=== PATIENT | male | born 2005 | race Two or more races ===

== ENCOUNTER 2024-03-21 17:18 | Emergency (ER) | payer MEDICAID, SELFPAY ==
[2024-03-21 17:31] VITALS: BP 136/78; PULSE 64; RESP 20; TEMP 36.9; O2SAT 97
--- NOTE | 2024-03-21 17:42 | XR_ITS ---
Examination: Abdomen sonogram, Limited Date and time of exam: March 21, 2024 1807 hrs. Indications: Epigastric pain beginning 2 days ago Technique: Real-time coulter scale transabdominal sonographic images of the upper abdomen obtained. Findings: Negative for gallstones Normal gallbladder wall 0.3 cm Common bile duct 0.3 cm Pancreatic head 3.3 cm Liver 16.5 cm fatty infiltration focal fatty sparing in the middle of the liver Patent IVC Normal hepatopedal portal venous oh Impression: Negative for cholelithiasis, negative for cholecystitis Normal common bile duct Mild hepatomegaly fatty liver
--- NOTE | 2024-03-21 17:42 | PD.EDRME ---
Rapid Medical Screening Exam RME Arrival date/time: 03/21/24 17:18 18-year-old male presents emergency department complains of upper abdominal pain Chief Complaint: Abdominal Pain Vital signs: Vital Signs Temperature 98.4 F 03/21/24 17:31 Pulse Rate 64 03/21/24 17:31 Respiratory Rate 20 03/21/24 17:31 Blood Pressure 136/78 H 03/21/24 17:31 Pulse Oximetry (%) 97 03/21/24 17:31 Oxygen Delivery Method Room Air 03/21/24 17:31
[2024-03-21 18:08] LABS: Collection Type, Urine Clean Catch; RBC,Urine 0 /hpf (0-3)
[2024-03-21 18:12] LABS: Basophils # (Auto) 0.1 Thou/mm3 (0.0-0.2); Basophils % (Auto) 1 % (0-2.5); Eosinophils # (Auto) 0.3 Thou/mm3 (0.0-0.5); Eosinophils % (Auto) 3 % (0-10); Hematocrit 44.9 % (41.0-53.0); Hemoglobin 15.3 g/dL (13.5-16.0); Immature Granulocytes % (Auto) 0 % (0-0); Immature Granulocytes Auto 0.01 Thou/mm3 (0.00-0.00); Lymphocytes # (Auto) 2.6 Thou/mm3 (1.0-4.8); Lymphocytes % (Auto) 31 % (10-50); Mean Corpuscular HGB Conc 34.1 g/dl (31.0-37.0); Mean Corpuscular Hemoglobin 28.9 pg (25.0-35.0); Mean Corpuscular Volume 85 fL (80-100); Monocytes # (Auto) 0.8 Thou/mm3 (0.0-0.8); Monocytes % (Auto) 10 % (0-12); Neutrophils # (Auto) 4.6 Thou/mm3 (1.8-7.7); Neutrophils % (Auto) 55 % (37-80); Nucleated Red Blood Cell % 0 /100 WBC (0); Platelet Count 247 Thou/mm3 (140-440); White Blood Count 8.3 Thou/mm3 (4.5-11.0)
[2024-03-21 18:29] LABS: Bilirubin,Urine Negative (Negative); Blood,Urine Negative (Negative); Clarity,Urine Clear (Clear/Hazy); Color,Urine Yellow (Lt Yel-Yel); Glucose, Urine Negative (Negative); Ketones,Urine Negative (Negative); Leukocyte Esterase,Urine Positive (Negative); Nitrite,Urine Negative (Negative); Protein,Urine Trace (Neg - Trace); Specific Gravity,Urine 1.031 (1.001-1.035); Squamous Epithelial Cell,Urine < 1 /hpf (0-5); WBC,Urine 35 /hpf (0-5)
[2024-03-21 18:30] LABS: Alanine Aminotransferase 32 U/L (10-49); Albumin, Serum 4.5 gm/dL (3.5-5.0); Albumin/Globulin Ratio 1.5 (1.2-2.2); Alkaline Phosphatase 86 U/L (46-116); Anion Gap 7 (7-16); Aspartate Amino Transferase 39 U/L (0-34); BUN/Creatinine Ratio 15 Ratio (12-20); Bilirubin,Total 0.4 mg/dL (0.3-1.2); Blood Urea Nitrogen 12 mg/dL (9-23); Calcium 8.9 mg/dL (8.3-10.6); Calcium (Corrected) 8.9 mg/dL (8.5-10.1); Carbon Dioxide 26.3 mMol/L (20.0-31.0); Chloride 109 mMol/L (98-107); Creatinine (Component) 0.8 mg/dL (0.6-1.3); Glucose 92 mg/dL (74-106); Lipase 39 U/L (12-53); Osmolality,Calculated 282 (275-295); Potassium 4.1 mMol/L (3.4-5.1); Sodium 142 mMol/L (136-145); Total Protein 7.5 gm/dL (5.7-8.2); eGFR > 60 See Note
[2024-03-21 18:31] LABS: Culture Indicated,Urine Yes
--- NOTE | 2024-03-21 19:41 | EDNOTE_ITS ---
ED Abdominal Pain RME/HPI General Chief Complaint: Abdominal Pain Stated complaint: RIGHT UPPER ABD PAIN Time seen by provider: 03/21/24 19:41 Arrival date/time: 03/21/24 17:18 18 year old male present to emergency room with c/o of RUQ pain for a few days. LOCATION: [facility] SEVERITY: Symptoms are described as being severe with limitations on activities of daily living QUALITY: Symptoms are described as being cramping CONTEXT: The patient is unable to identify any inciting events. DURATION/TIMING: The symptoms started approximately one day ago and have been waxing/waning but always present without ever completely resolving. ASSOCIATED SYMPTOMS: The patient is unable to identify any other associated s ymptoms. MODIFYING FACTORS: The patient is unable to identify any alleviating or aggravating symptoms. PERTINENT ROS: no fevers, no anorexia, no nausea or vomiting, no diarrhea, no ripping or tearing sensations, no syncope or presyncopal symptoms, denies trauma, denies genital pain REVIEW OF SYSTEMS: See History of Present Illness - with the exception of those mentioned in the history of present illness, all other systems reviewed and reported as negative GENERAL: In general the patient is awake, interactive, in an emergency department gurney. HEAD/EYES/EARS/NOSE/THROAT: normo-cephalic, atraumatic, mucus membranes are moist, anicteric, palpebral conjunctiva is pink, trachea is midline. CARDIOVASCULAR: regular rate and regular rhythm, no murmurs, heart sounds are not distant, strong pulses in all four extremities that are equal and symmetric bilateral upper and lower extremities, normal capillary refill. CHEST/PULMONARY: normal chest rise and fall, good air movement, clear to auscu ltation bilaterally, normal inspiratory to expiratory ratios without evidence of respiratory distress. NECK: No midline/Paraspinal tenderness, no step off ROM/Strenght intact No Kernig and bruzinski sign. No trauma ABDOMEN: soft, not tender, no masses appreciated BACK: normal range of motion without pain. NEUROLOGICAL: cranio-facial features are symmetric, moves all four extremities equally without obvious limitations or weakness. EXTREMITY: no tenderness to palpation over the long bones or large joints of the bilateral upper and lower extremities, no joint swelling, no joint erythema, no signs of trauma, no unilateral leg swelling and no peripheral edema. SKIN: warm, dry, well-perfused, no jaundice, no rash, no telangiectasias or petechia. PSYCH: calm, cooperative, no evidence of psychosis or agitation RME / HPI RME / HPI narrative: 03/21/24 17:18 18-year-old male presents emergency department complains of upper abdominal pain Related Data Allergies Allergy/AdvReac Type Severity Reaction Status Date / Time No Known Allergies Allergy Verified 03/21/24 17:18 Course Course Course Narrative: Patient?s symptoms not typical for emergent causes of abdominal pain such as, but not limited to, appendicitis, abdominal aortic aneurysm, surgical biliary disease, pancreatitis, SBO, mesenteric ischemia, serious intra-abdominal bacterial illness, genital torsion. Doubt atypical ACS. Pt tolerating PO. Disposition: Patient will be discharged with strict return precautions and follow up with primary MD within 12-24 hours for further evaluation. Patient understands that this still may have an early presentation of an emergent medical condition such as appendicitis that will require a recheck. Quality Measures none Orders Category Date Time Status US gall bladder Stat Exams 03/21/24 17:42 Completed CBC Stat Lab 03/21/24 17:47 Completed Comprehensive Metabolic Panel Stat Lab 03/21/24 17:47 Completed Lipase Stat Lab 03/21/24 17:47 Completed UA, C/S IF [Urinalysis, C/S if Indicated] Stat Lab 03/21/24 18:01 Completed Urine Culture Stat Lab 03/21/24 18:01 Received Vital Signs Vital signs: Vital Signs Temperature 98.4 F 03/21/24 17:31 Pulse Rate 64 03/21/24 17:31 Respiratory Rate 20 03/21/24 17:31 Blood Pressure 136/78 H 03/21/24 17:31 Pulse Oximetry (%) 97 03/21/24 17:31 Oxygen Delivery Method Room Air 03/21/24 17:31 Abdominal Pain MDM Patient data External records reviewed:: None Clinical information provided by:: patient Social determinants that could affect healthcare access:: none Patient has the following chronic illnesses:: none How is presenting disease/condition affected by chronic disease/condition?: no chronic disease Evaluation data The following diagnostics were reviewed and interpreted by me:: other (specify) (none ) Lab and/or radiology exams considered but not ordered:: none Interpretation Summary: basic labs wnl us: wnl Medications / Prescriptions Medications or Prescriptions considered but not ordered:: none Medication administrations:: none Consultations Consultation(s) initiated? (list below): No Diagnosis Differential diagnosis abdominal pain: abdominal pain, calculus of kidney, gastroenteritis and other (gallstone constipation ) Most likely diagnosis given after review of the tests above:: abd pain Admission Indicated Admission indicated?: not indicated Admission Request Was there a request for admission?: No Disposition Plan Disposition Plan: Discharge Discharge Attestation Discharge Attestation: The patient and all family members were given an opportunity to ask questions and understood the discharge instructions. Discharge instructions specifically effects, indications for sooner follow up or return to the emergency department, and the expected course of current diagnosis. Patient condition: Stable Discharge Plan Plan Patient Disposition: HOME (Self Care) Health Concerns: Follow with PMD as directed Take tylenol or motrin as need Return to ED if sx worsen Prescriptions/Referrals Referrals: No Primary/Family,Physician [Primary Care Provider] - In 1 week Problem List Clinical Impression: Abdominal pain Patient/Caregiver Discharge Instructions Education Materials: Abdominal Pain Print Language: [place] Stand Alone Forms: Maribel Award Info., Patient Portal Info Letter
[2024-03-21 19:46] VITALS: RESP 18
== END 2024-03-21 19:47 | disposition home or self-care (01) ==
PROVIDERS: Nurse Practitioner Primary Care; Emergency Provider Emergency Medicine
DX: R10.11 Right upper quadrant pain (principal)
CPT/HCPCS: 36415; 76705; 80053; 81001; 83690; 85025; 87086; 99284